=== PATIENT | female | born 1975 | race Caucasian/White ===

== ENCOUNTER 2019-08-22 12:25 | Emergency (ER) | payer MEDICAID ==
[~2019-08-22] VITALS: Ht 162.6 cm; Wt 84.0 kg
[~2019-08-22 12:25] MED LIST: BUSP10TA3 PO; MEDROXYPROGESTERONE
[2019-08-22] MEDS ORDERED: MAGNESIUM/ALUMINUM HYDROXIDE/SIMETHICONE 30ML UDC PO NR (14:33)
[2019-08-22] MEDS ORDERED: VISCOUS LIDOCAINE 2% 15 ML UDC PO NR (14:34)
[2019-08-22] MEDS ORDERED: ONDANSETRON 4MG ODT PO NR (14:34)
[2019-08-22 14:51] LABS: BASOPHILS % 0.6 % (0.0-2.0); EOSINOPHILS % 1.2 % (0.0-5.0); HEMATOCRIT. 38.6 % (36.0-48.0); LYMPHOCYTES % 29.7 % (20.0-50.0); MEAN PLATELET VOLUME 7.6 fl (7.4-10.4); MONOCYTES % 5.1 % (2.0-8.0); NEUTROPHILS % 63.4 % (40.0-76.0); PLATELET 252 x1000/uL (130-400); RED BLOOD CELL COUNT 4.34 mill/uL (4.2-5.4); RED CELL DISTRIBUTION WIDTH 13.6 % (11.6-14.6)
[2019-08-22 14:56] LABS: CHLORIDE 108 mEq/L (98-107); PROTHROMBIN TIME 10.1 sec (9.6-11.0)
[2019-08-22 14:56] LABS: CLARITY URINE CLOUDY (CLEAR); COLOR URINE DARK YELLOW (YELLOW); KETONES URINE NEGATIVE (NEGATIVE); LEUKOCYTE ESTERASE URINE TRACE (NEGATIVE); NITRITE URINE NEGATIVE (NEGATIVE); OCCULT BLOOD URINE 3+ (NEGATIVE); PROTEIN URINE TRACE (NEGATIVE); SPECIFIC GRAVITY URINE 1.026 (1.005-1.030); UROBILINOGEN URINE 0.2 E.U./dL (0.2-1.0)
[2019-08-22 17:49] VITALS: BP 145/64
== END 2019-08-22 17:50 | disposition home or self-care (01) ==
LOC: ER 12:25
DX: R10.13 Epigastric pain (principal); R11.0 Nausea; Z90.49 Acquired absence of other specified parts of digestive tract; Z98.890 Other specified postprocedural states; Z90.710 Acquired absence of both cervix and uterus
CPT/HCPCS: 36415; 71045; 74176; 80053; 81003; 81025; 83690; 85025; 85610; 99285; Q0162

== ENCOUNTER 2020-07-05 00:15 | Emergency (ER) | payer MEDICAID ==
[~2020-07-05] VITALS: Ht 160 cm; Wt 79.5 kg
[2020-07-05 00:35] VITALS: BP 144/80
== END 2020-07-05 02:08 | disposition home or self-care (01) ==
LOC: ER 00:15
DX: U07.1 COVID-19 (principal); E78.00 Pure hypercholesterolemia, unspecified; Z90.49 Acquired absence of other specified parts of digestive tract; Z98.890 Other specified postprocedural states; Z90.710 Acquired absence of both cervix and uterus
CPT/HCPCS: 99283; C9803; U0003

== ENCOUNTER 2021-04-30 15:50 | Emergency (ER) | payer MEDICAID ==
[~2021-04-30] VITALS: Ht 160 cm; Wt 80.0 kg
[2021-04-30 18:32] LABS: CLARITY URINE CLEAR (CLEAR); COLOR URINE YELLOW (YELLOW); KETONES URINE NEGATIVE (NEGATIVE); LEUKOCYTE ESTERASE URINE NEGATIVE (NEGATIVE); NITRITE URINE NEGATIVE (NEGATIVE); OCCULT BLOOD URINE 3+ (NEGATIVE); PROTEIN URINE NEGATIVE (NEGATIVE); UROBILINOGEN URINE 0.2 E.U./dL (0.2-1.0)
[2021-04-30 18:49] LABS: HEMATOCRIT. 34.9 % (36.0-48.0); MEAN CORPUSCULAR HEMOGLOBIN 30.7 pg (28.0-32.0); MEAN PLATELET VOLUME 7.4 fl (7.4-10.4); PLATELET 249 x1000/uL (130-400); RED BLOOD CELL COUNT 3.92 mill/uL (4.2-5.4); RED CELL DISTRIBUTION WIDTH 13.7 % (11.6-14.6)
[2021-04-30 18:54] LABS: CHLORIDE 106 mEq/L (98-107)
[2021-04-30 18:57] LABS: HCG SCREEN NEGATIVE
[2021-04-30] MEDS ORDERED: ONDANSETRON 4MG ODT PO ONE (19:00)
[2021-04-30 19:29] LABS: PLATELET ESTIMATE NORMAL
[2021-04-30] MEDS ORDERED: ONDA4TAB50 MT (20:05)
[2021-04-30 20:30] VITALS: BP 139/78
== END 2021-04-30 20:34 | disposition home or self-care (01) ==
LOC: ER 15:50
DX: R10.9 Unspecified abdominal pain (principal); R11.0 Nausea; R19.7 Diarrhea, unspecified; F41.9 Anxiety disorder, unspecified; Z90.49 Acquired absence of other specified parts of digestive tract; Z90.710 Acquired absence of both cervix and uterus; Z98.890 Other specified postprocedural states
CPT/HCPCS: 36415; 80053; 81003; 83690; 84703; 85025; 93005; 99284; Q0162

== ENCOUNTER 2022-06-19 21:08 | Emergency (ER) | payer MEDICAID ==
[~2022-06-19] VITALS: Ht 162.6 cm; Wt 85.3 kg
[~2022-06-19 21:08] MED LIST changes: +ONDA4TAB50 MT
[2022-06-19 21:53] VITALS: BP 151/90
[2022-06-20 00:45] LABS: BASOPHILS % 0.6 % (0.0-2.0); EOSINOPHILS % 1.8 % (0.0-5.0); HEMATOCRIT. 34.2 % (36.0-48.0); HEMOGLOBIN. 11.5 g/dL (12.0-16.0); LYMPHOCYTES % 28.2 % (20.0-50.0); MEAN CORPUSCULAR HEMOGLOBIN 30.5 pg (28.0-32.0); MEAN CORPUSCULAR VOLUME 90.2 fL (81.0-99.0); MEAN PLATELET VOLUME 7.6 fl (7.4-10.4); MONOCYTES % 6.5 % (2.0-8.0); NEUTROPHILS % 62.9 % (40.0-76.0); PLATELET 252 x1000/uL (130-400); RED BLOOD CELL COUNT 3.79 mill/uL (4.2-5.4); RED CELL DISTRIBUTION WIDTH 13.8 % (11.6-14.6)
[2022-06-20 01:17] LABS: B-HCG QUANTITATIVE < 1 mIU/mL (<3); CHLORIDE 108 mEq/L (98-107)
[2022-06-20 01:40] LABS: HCG SCREEN NEGATIVE
[2022-06-20] MEDS ORDERED: POTASSIUM CHLORIDE 20MEQ TABLET SR PO NR (01:45)
[2022-06-20 02:07] LABS: CLARITY URINE CLEAR (CLEAR); COLOR URINE YELLOW (YELLOW); KETONES URINE NEGATIVE (NEGATIVE); LEUKOCYTE ESTERASE URINE NEGATIVE (NEGATIVE); NITRITE URINE NEGATIVE (NEGATIVE); OCCULT BLOOD URINE 3+ (NEGATIVE); PH URINE 6.5 (4.5-8.0); PROTEIN URINE NEGATIVE (NEGATIVE); SPECIFIC GRAVITY URINE 1.015 (1.005-1.030)
[2022-06-20 02:46] LABS: *AMPHETAMINES SCREEN URINE NEGATIVE (NEGATIVE); *BARBITURATES SCREEN URINE NEGATIVE (NEGATIVE); *BENZODIAZEPINES SCREEN URINE NEGATIVE (NEGATIVE); *COCAINE SCREEN URINE NEGATIVE (NEGATIVE); CANNABINOID URINE SCREEN NEGATIVE (NEGATIVE); METHADONE URINE SCREEN NEGATIVE (NEGATIVE); OPIATES URINE SCREEN NEGATIVE (NEGATIVE); PHENCYCLIDINE URINE SCREEN NEGATIVE (NEGATIVE)
== END 2022-06-20 03:41 | disposition home or self-care (01) ==
LOC: ER 21:08
DX: R10.84 Generalized abdominal pain (principal); E87.6 Hypokalemia; F41.9 Anxiety disorder, unspecified; Z88.4 Allergy status to anesthetic agent; Z90.49 Acquired absence of other specified parts of digestive tract; Z90.710 Acquired absence of both cervix and uterus
CPT/HCPCS: 36415; 74176; 76830; 76856; 80053; 80305; 81003; 81025; 84702; 84703; 85025; 86850; 86900; 99285

== ENCOUNTER 2022-11-30 20:38 | Emergency (ER) | payer MEDICAID, OTHER ==
[~2022-11-30] VITALS: Ht 165.1 cm; Wt 84.0 kg
[2022-12-01] MEDS ORDERED: KETOROLAC 30MG/ML VIAL IM ONE (01:30)
[2022-12-01] MEDS ORDERED: ONDANSETRON 4MG ODT PO ONE (01:30)
[2022-12-01] MEDS ORDERED: NAPR-681 MT (02:14)
[2022-12-01] MEDS ORDERED: IMOD MT (02:14)
[2022-12-01 02:16] VITALS: BP 147/91
== END 2022-12-01 02:47 | disposition home or self-care (01) ==
LOC: ER 20:38
DX: S09.90XA Unspecified injury of head, initial encounter (principal); F41.9 Anxiety disorder, unspecified; Z90.89 Acquired absence of other organs; Z90.710 Acquired absence of both cervix and uterus; W22.8XXA Striking against or struck by other objects, initial encounter; Y93.89 Activity, other specified; Y92.89 Other specified places as the place of occurrence of the external cause; Y99.8 Other external cause status
CPT/HCPCS: 96372; 99283; J1885; Q0162; Z7610

== ENCOUNTER 2023-08-25 20:39 | Emergency (ER) | payer OTHER ==
[~2023-08-25] VITALS: Ht 165.1 cm; Wt 84.4 kg
[~2023-08-25 20:39] MED LIST changes: +IMOD MT; +NAPR-681 MT
[2023-08-25 20:50] VITALS: O2SAT 100
[2023-08-26] MEDS ORDERED: CYCL5TAB MT (01:45)
[2023-08-26] MEDS ORDERED: NAPR-1176 MT (01:45)
[2023-08-26] MEDS ORDERED: LIDO700A15 TP (01:45)
[2023-08-26 03:03] VITALS: BP 141/85; PULSE 74; RESP 18; TEMP 98.5
== END 2023-08-26 03:05 | disposition home or self-care (01) ==
LOC: ER 20:39
DX: M54.12 Radiculopathy, cervical region (principal); Z98.890 Other specified postprocedural states; Z90.49 Acquired absence of other specified parts of digestive tract; Z90.710 Acquired absence of both cervix and uterus
CPT/HCPCS: 81025; 99283